=== PATIENT | female | born 1985 | race Caucasian/White ===

== ENCOUNTER 2017-09-26 16:09 | Emergency (ER) | payer OTHER ==
[~2017-09-26] VITALS: Ht 172.7 cm; Wt 99.8 kg
[~2017-09-26 16:09] MED LIST: CEPH500 PO; CLON1 PO; Cleocin HCl300 MG PO; HYDR1TAB94 PO; IBUP200 PO; Polytrim Eye Dr10 ML RIGHTEYE; RXCLIN PO; SULTRIDS PO
[2017-09-26] MEDS ORDERED: Omeprazole20 M1 (16:16)
[2017-09-26] MEDS ORDERED: NEOPOLHCSU LEFTEAR (16:24)
[2017-09-26] MEDS ORDERED: Flonase 0.05% N16 GM (16:24)
[2017-09-26] MEDS ORDERED: Sudogest30 MG PO (16:24)
== END 2017-09-26 16:42 | disposition home or self-care (01) ==
LOC: ER 16:09
DX: H60.92 Unspecified otitis externa, left ear (principal); F17.210 Nicotine dependence, cigarettes, uncomplicated; Z88.5 Allergy status to narcotic agent; Z79.899 Other long term (current) drug therapy
CPT/HCPCS: 99283